=== PATIENT | male | born 1975 | race Caucasian/White ===

== ENCOUNTER 2023-11-04 07:31 | Day surgery (SDC) | payer BC ==
[2023-11-04] MEDS: Lactated Ringers 1,000 ML IV SCH (08:03)
[2023-11-04] MEDS ORDERED: Diazepam 5 MG/ML ML Oral Soln 30 ML Bottle PO PRN (08:16)
[2023-11-04] MEDS ORDERED: Propofol 200 MG/20 ML SDV ONE ×3 (08:22→09:33)
[2023-11-04] MEDS ORDERED: fentaNYL 100 MCG/2 ML SDV ONE (08:23)
[2023-11-04] MEDS: Midazolam Oral Soln 10 MG/5 ML UD Cup PO PRN (08:59)
[2023-12-24] MEDS ORDERED: Lactated Ringers 1,000 ML IV SCH (07:00)
== END 2023-11-04 10:57 | disposition home or self-care (01) ==
LOC: VM.SDS 07:31
PROVIDERS: ATTEND Family Medicine
DX: D12.8 Benign neoplasm of rectum (principal); K31.A0 Gastric intestinal metaplasia, unspecified; K57.30 Diverticulosis of large intestine without perforation or abscess without bleeding; I10 Essential (primary) hypertension; F41.8 Other specified anxiety disorders; F17.210 Nicotine dependence, cigarettes, uncomplicated
CPT/HCPCS: 00813; A9270-GY; J2704; J3010; J7120

== ENCOUNTER 2024-04-26 12:24 | Emergency (ER) | payer BC | END 2024-04-26 12:38 | disposition home or self-care (01) | LOC: VM.ED 12:24 | DX: S01.81XA Laceration without foreign body of other part of head, initial encounter (principal); I10 Essential (primary) hypertension; Z87.891 Personal history of nicotine dependence; Z79.899 Other long term (current) drug therapy; W26.8XXA Contact with other sharp object(s), not elsewhere classified, initial encounter | CPT/HCPCS: 12011; 12014; 99282; 99283 ==